=== PATIENT | male | born 1955 | race African-American/Black ===

== ENCOUNTER → 2018-02-12 | Day surgery (SDC) | payer BC ==
[2018-02-10 16:34] LABS: BASOPHILS % 0.6 % (0.0-1.0); EOSINOPHILS # (AUTO) 0.1 (0.0-0.4); EOSINOPHILS % 1.1 % (0.0-6.0); HEMATOCRIT 45.2 % (38.2-49.6); HEMOGLOBIN 14.8 g/dL (14.0-18.0); LYMPHOCYTES # (AUTO) 2.5 (1.0-3.2); LYMPHOCYTES % 35.5 % (18.0-39.1); MEAN CORPUSCULAR HEMOGLOBIN 24.1 pg (28-32); MEAN CORPUSCULAR HGB CONC 32.7 g/dL (31-35); MEAN CORPUSCULAR VOLUME 73.7 fL (81-99); MONOCYTES % 14.4 % (4.4-11.3); NEUTROPHILS # (AUTO) 3.4 (2.1-6.9); NEUTROPHILS % 48.1 % (38.7-80.0); PLATELET COUNT 174 x10e3/uL (140-360); RED BLOOD COUNT 6.13 x10e6/uL (4.3-5.7); RED CELL DISTRIBUTION WIDTH 17.5 % (11.7-14.4)
[2018-02-10 16:52] LABS: ALANINE AMINOTRANSFERASE 29 IU/L (0-55); ALBUMIN/GLOBULIN RATIO 1.2 (0.8-2.0); ALKALINE PHOSPHATASE 69 IU/L (40-150); ANION GAP 13.3 mmol/L (8-16); BLOOD UREA NITROGEN 22 mg/dL (7-26); BUN/CREATININE RATIO 16 (6-25); CALCIUM 9.6 mg/dL (8.4-10.2); CARBON DIOXIDE 24 mmol/L (22-29); CHLORIDE 106 mmol/L (98-107); CHOL/HDL RATIO 3.4 (3.9-4.7); CHOLESTEROL 218 MD/DL (0-199); CREATININE, SERUM 1.35 mg/dL (0.72-1.25); EST GLOMERULAR FILTRATION RATE > 60 ML/MIN (60-); GLUCOSE 100 mg/dL (74-118); HDL CHOLESTEROL 65 MG/DL (40-60); LDL CHOLESTEROL 106 MG/DL (60-130); POTASSIUM 4.3 mmol/L (3.5-5.1); SODIUM 139 mmol/L (136-145); TRIGLYCERIDES 233 MG/DL (0-149)
[~2018-02-12] VITALS: Ht 167.6 cm; Wt 68.0 kg
[2018-02-12] VITALS (9 sets, daily range): BP systolic 108–159; BP diastolic 78–103
[~2018-02-12] MED LIST: ALPRAZOLAM 0.5 MG TAB ONE; DIPHENHYDRAMINE HCL 25 MG CAP ONE; EXFORGE 5-3201 EACH; FENTANYL CITRATE/PF 100MCG/2 ML INJ ONE; HEPARIN SOD (PORCINE) 1000 UNIT/ML 30ML ONE; HEPARIN SOD/SOD CHLORIDE 2,000 ML ONE; IOPAMIDOL 370 MG/ML 200 ML INFUS..BTL INJ ONE; LIDOCAINE HCL 2% LOCAL 20 ML VIAL ONE; MIDAZOLAM HCL 2 MG/2 ML VIAL ONE; PRAVASTATIN SOD10 MG; SODIUM CHLORIDE 0.9% 1000ML 1,000 ML ONE; VERAPAMIL HCL 2.5 MG/ML 2 ML VIAL ONE
--- NOTE | 2018-02-12 14:49 | Operative Report ---
DATE OF PROCEDURE: February 12, 2018 PROCEDURE: Cardiac catheterization. INDICATIONS: Chest pain, positive stress test. PRE-SEDATION ASSESSMENT: Medical history, social history and previous experience with anesthesia was reviewed and documented in the preoperative medical record. Results of relevant diagnostic studies were reviewed. Planned choice of anesthesia, risks, complications, benefits, and alternatives were discussed. The patient deemed appropriate candidate for planned choice of anesthesia. CONSENT: The benefits, risks, complications and alternatives to procedure were discussed with the patient and informed consent was obtained from patient prior to the procedure. MEDICATIONS: Please see nursing notes for medications administered during the procedure. PROCEDURE: The patient was brought to the cardiac catheterization laboratory in a fasting state. The right wrist was prepped and draped in a sterile fashion. One percent Lidocaine was used to infiltrate the right wrist over the right radial artery. A 6-Yi sheath was placed in the right radial artery using modified Seldinger technique. Coronary angiography was performed using a UannaBe catheter to engage both the RCA and the LCA. Multiple orthogonal views were obtained of each coronary artery. All catheters were moved over a guidewire. Exit site was closed using TR Band. The case ended without any complications. ESTIMATED BLOOD LOSS: Approximately 20 mL. FINDINGS 1. Left main: Large in caliber. No CAD. 2. LAD: Large vessel goes to the apex. Two medium-sized diagonals. No significant CAD. 3. Left circumflex: Large, nondominant vessel. One very large OM branch, luminal irregularities only. 4. RCA: Dominant RCA. Medium size RPDA and small RPL system. Luminal irregularities only. 5. LVEDP 20 mmHg. LV ejection fraction by left ventriculography 65% without significant MR or AI. COMPLICATIONS: None. SPECIMEN REMOVED: None. IMPLANTS: None. ESTIMATED BLOOD LOSS: 20 mL. RECOMMENDATIONS 1. Usual post PCI care until TR Band removal. 2. Continue optimal medical therapy and risk factor control. 3. Call the office for followup in 2 weeks post procedure. Job#: [id number] [facility]
== END | disposition home or self-care (01) ==
LOC: CATH LAB 07:07
PROVIDERS: ATTEND Internal Medicine
DX: I20.9 Angina pectoris, unspecified (principal); R94.39 Abnormal result of other cardiovascular function study; I10 Essential (primary) hypertension; E78.00 Pure hypercholesterolemia, unspecified; Z01.812 Encounter for preprocedural laboratory examination; Z82.49 Family history of ischemic heart disease and other diseases of the circulatory system
CPT/HCPCS: 36415; 80053; 80061; 85025; 93458; J1644; J2001; J2250; J7030; Q9967